=== PATIENT | female | born 1950 | race Caucasian/White ===

== ENCOUNTER → 2017-11-18 | Outpatient (CLI) | payer MEDICARE, OTHER ==
[~2017-11-18] MED LIST: ALENDRONATE SOD35 MG PO; ALLEGRA-D 12 H1 EAC1 PO; AZO CRANBERRY1 EACH PO; BOTOX COSMETI50 UNIT IM; BUTALBITAL-APA1 EAC1 PO; CALCIUM 600 +1 EAC2 PO; CALCIUM 600 WI1 EAC2 PO; CARDIZEM60 MG PO; COMPAZINE5 MG PO; DILTIAZEM ER120 M1 PO; ESTRADIOL 1 MG T1 M1 PO; FIORICET 50-321 EACH PO; FLAXSEED OIL1000 M2 PO; HYDROCODON-ACE1 EAC7 PO; IBUPROFEN 800800 M1 PO; LEVOTHYROXIN0.112 M1 PO; LISINOPRIL10 MG PO; MACROBID 100 M100 M2 PO; MELATONIN5 M1 PO; MELOXICAM7.5 MG PO; MOTILIUM PO; NEURONTIN 400400 M1 PO; NEURONTIN600 MG PO; NEUROTIN; NEXIUM40 MG PO; OXYCODONE HCL5 M1 PO; PAXIL10 MG PO; PROCHLORPERAZINE5 M2 PO; PROTONIX40 M1 PO; RIZATRIPTAN10 M1 PO; SKELAXIN 800 M800 M1 PO; SUMATRIPTAN PO; ULTRACET TABLE1 EACH PO; UNISOM50 MG PO; VITAMIN B-650 M1 PO; VITAMIN E400 UNIT PO; ZETIA10 MG PO; ZOFRAN4 MG PO; ZYRTEC-D TABLE1 EAC1 PO
--- NOTE | 2017-12-10 08:27 | PAINCON ---
[address] [address] PAIN MANAGEMENT CONSULTATION Name: THAONAE L Room: [facility] Anila#: [id number] Admission: 11/18/17 Attend Phys: Maddy Paige MD Discharge: Date of : 50 Report #: [id number] THIS REPORT FOR: //name// CC: Wing Gregg DATE OF SERVICE: 11/18/2017 CHIEF COMPLAINT: Pain in the back of the neck and some pain down in my left arm. HISTORY OF PRESENT ILLNESS: The patient is a 67-year-old female who has been referred to the Pain Clinic. The patient has a long history of chronic pain. She suffers from migraine headaches. She has undergone Botox injections. She is undergoing physical therapy. States that there is a strong history of migraine in her family. Father, mother, sisters and brother are all affected by migraines. She finds that her pain can be quite problematic. She has a regimen of medications she has been using. She has problems with her kidneys, third-degree levels of function. She has undergone physical therapy. Finds that pain in her left arm can be problematic. Notes that when she falls asleep or lays back that she can get numbness and tingling down into her arms involving the middle finger. Has been told that she has some stenosis in the cervical 3-4 area. Rates her pain as a 2/10 today. ALLERGIES: THE PATIENT HAS USED STEROID MEDICATIONS AND NOTES A REDDENING OF HER FACE. THIS IS BUFFERED BY USE OF BENADRYL. HAS PROBLEMS WITH STATINS WITH ADVERSE REACTION. CURRENT MEDICATIONS: Zetia 10 mg p.o. daily, lisinopril 10 mg daily, Zyrtec-D 5 mg/120 p.o. daily, Motilium 10 mg p.o. t.i.d., Synthroid 112 mcg daily, pantoprazole 40 mg b.i.d., calcium 600 mg p.o. b.i.d., diltiazem 60 mg daily, Botox subq every 3 months for migraine headaches, melatonin 5 mg at night, Paxil 10 mg p.o. at night, gabapentin 400 mg at bedtime and 600 mg in the morning, alendronate 35 mg once weekly p.r.n. Medications include metaxalone 800 mg t.i.d. for headache, butalbital/APAP/caffeine 50/325/40 one tablet to two tablets q. 48 hours p.r.n. headache, prochlorperazine 5 mg p.o. q.4 hours p.r.n. nausea, sumatriptan 25 mg p.r.n. migraine, Azo-Tabs p.o. for bladder spasms p.r.n., Macrobid 1 tablet b.i.d. p.r.n. UTI, rizatriptan 10 mg p.r.n. migraine. PAST MEDICAL HISTORY: Migraine headaches with strong family history of migraine headaches, hypothyroidism, hypertension, cervical spondylosis without myelopathy, dysphasia, carpal tunnel syndrome right upper limb, hypercholesterolemia, hyperlipidemia, osteopenia, osteoporosis, diverticulosis of the colon, chronic renal disease stage 3 moderate, reactive airway disease, chronic insomnia. [facility] [address] [place] [address] PAIN MANAGEMENT CONSULTATION Name: NAE THAO Room: [facility]#: [id number] Admission: 11/18/17 Attend Phys: Maddy Paige MD Discharge: Date of : 50 Report #: [id number] FAMILY HISTORY: Father with cerebrovascular accident, myocardial infarct, hypertension disorder, alcoholism. Sister with malignant neoplastic disease, migraine headaches, hypertension disorder, disorder of the lungs. Daughter with malignant neoplastic disease. Mother with heart disease, hypertensive disorder, diabetes mellitus, depression disorder, anxiety, senility. PAST SURGICAL HISTORY: Salpingo-oophorectomy 07/2013, breast mastectomy 02/2013, knee surgery, ACL repair 02/2013, shoulder surgery, hysterectomy, breast reconstruction 06/2013. 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 Denies use of tobacco. Denies use of alcoholic beverages. REVIEW OF SYSTEMS: Generally good health, chronic headaches, wears glasses, chronic sinus problems/rhinitis, shortness of breath, chronic frequent cough, lightheadedness, dizziness, numbness and tingling in the left arm, thyroid disease, anemia. LABORATORY DATA: NCV and EMG findings 11/2016 indicate evaluation of the right median sensory nerve showed prolonged distal peak latency 4.1 MS. All remaining nerves as indicated were within normal limits. Needle evaluation of the right bicep and right deltoid muscles showed few complex polyphasic potentials. All remaining muscles showed no evidence of electrical instability. IMPRESSION: The electrodiagnostic study reveals evidence of mild or early primary subacute C5/C6 radiculopathy on the right. There is also evidence of mild right carpal tunnel syndrome, medial nerve entrapment at the wrist. PAIN CLINIC ASSESSMENT: 1. History of arthritis involving the right shoulder. 2. Height 5 feet 6 inches, weight 179 pounds, BMI is 29. 3. Vital signs - blood pressure 119/72, pulse 72, respiratory rate 16, room air saturation 95%, temperature 97.7. 4. Pain intensity judged 11/15. 5. Fall risk. The patient has not fallen in the last 3 months. 6. Blood thinners. The patient is not on a blood thinner. 7. History of hypertension. The patient is being treated for hypertension. 8. Opioid greater than 6 weeks. The patient is not receiving chronic opioid therapy. 9. Risk assessment tool. 10. Functional assessment tool. 11. Recreational drug use. The patient has never used recreational drugs. 12. Tobacco. The patient does not smoke tobacco. 13. Alcohol. The patient does not use alcohol. 14. The pain impact score is 38/70 in regards to general activity, mood, [place] [address] PAIN MANAGEMENT CONSULTATION Name: NAE THAO Room: [facility]#: [id number] Admission: 11/18/17 Attend Phys: Maddy Paige MD Discharge: Date of : 50 Report #: [id number] walking ability, normal work, relationship with others, sleep, enjoyment of life. PHYSICAL EXAMINATION: GENERAL: The patient is a well-developed white female, appears her stated age. Orientation, the patient is alert and oriented x 3 with smooth language. Affect, appropriate. HEENT: Head is atraumatic. Extraocular muscles intact. Denies any significant sinus problems today. NECK: Without adenopathy. MUSCULOSKELETAL: Palpation in the occipital areas bilaterally reproduce a significant component of the patient's pain, which she is experiencing today. She sometimes has pain that radiates from the occipital area to the temporal areas and some sensation behind her eye of pain and discomfort. Palpation in the left levator scapulae causes pain and discomfort with palpation of this up into the transverse processes in her neck. She has muscle strength today judged to be 5/5 for the major muscle groups of the upper extremity. Interosseous muscles are within normal limits. Deep tendon reflexes are +1 bilaterally at the biceps, difficult to assess for the triceps and brachioradialis, and left and right lateral head rotation and left and right lateral bending cause some discomfort in the neck area. Musculoskeletal evaluation is without significant scoliosis, kyphosis or lordosis. Deep tendon reflexes are +1 at the knees bilaterally. Difficult to assess at the ankles. Major muscle groups judged to be 5/5 for the major muscle groups in the lower extremities. IMPRESSION: 1. Bilateral occipital neuralgia on evaluation today. 2. Chronic kidney disease stage 3. 3. Reactive airway disease. 4. Chronic migraines with family history of migraines. 5. Essential hypertension. 6. History of breast cancer. 7. Chronic insomnia. 8. Hyperlipidemia. 9. Gastroesophageal reflux disease. 10. Hypothyroidism. RECOMMENDATIONS: We discussed treatment options with the patient. She does have pain in the left and right occipital areas. Palpation in this area does reproduce a significant component of the pain and discomfort. We discussed the possible treatment of this pain with occipital nerve blocks. The patient at this juncture feels that her headache is problematic enough that she would like to proceed with this course of treatment. We have explained the possible complications, which could include but are not limited to infection, increased muscle soreness, headache, bleeding and worsening of pain. The [place] [address] PAIN MANAGEMENT CONSULTATION Name: THAONAE Room: [facility] Anila#: [id number] Admission: 11/18/17 Attend Phys: Maddy Paige MD Discharge: Date of : 50 Report #: [id number] PROCEDURE NOTE: The patient was placed in the prone position. Her neck was sterilely prepped with a chlorhexidine solution. This was allowed to dry. Palpation of the left occipital area was provided. This reproduced the patient's pain. A 25-gauge needle was then advanced into this area. After aspiration without blood, a total of 7 mL of 0.5% bupivacaine and 40 mg triamcinolone was injected on the left side. The contralateral right side was treated in a like fashion. This area had been sterilely prepped with a chlorhexidine solution and allowed to dry. A 25-gauge needle was then advanced into this area. It reproduced her discomfort. A total of 8 of 7 mL of 0.5% bupivacaine and 40 mg triamcinolone was injected. The patient tolerated the procedure well. There were no complications. She will follow up in the future as needed. We would like to thank you for letting us participate in her care. We hope she continues to improve. <ELECTRONICALLY SIGNED> By: Maddy Paige MD 12/10/17 0827 [id number] [id number]. Virgil Paige MD /nt
== END | disposition home or self-care (01) ==
LOC: M.PC 01:30
DX: M54.81 Occipital neuralgia (principal); I12.9 Hypertensive chronic kidney disease with stage 1 through stage 4 chronic kidney disease, or unspecified chronic kidney disease; N18.3 Chronic kidney disease, stage 3 (moderate); G43.809 Other migraine, not intractable, without status migrainosus; J45.909 Unspecified asthma, uncomplicated; F51.04 Psychophysiologic insomnia; E78.5 Hyperlipidemia, unspecified; K21.9 Gastro-esophageal reflux disease without esophagitis; E03.9 Hypothyroidism, unspecified; M81.0 Age-related osteoporosis without current pathological fracture; M85.80 Other specified disorders of bone density and structure, unspecified site; Z85.3 Personal history of malignant neoplasm of breast; Z82.49 Family history of ischemic heart disease and other diseases of the circulatory system; Z83.3 Family history of diabetes mellitus; Z80.8 Family history of malignant neoplasm of other organs or systems; Z98.890 Other specified postprocedural states; Z87.19 Personal history of other diseases of the digestive system; Z79.899 Other long term (current) drug therapy; Z88.8 Allergy status to other drugs, medicaments and biological substances

== ENCOUNTER → 2017-12-09 | Outpatient (CLI) | payer MEDICARE, OTHER ==
--- NOTE | 2017-12-17 14:39 | PAINCON ---
[address] [address] PAIN MANAGEMENT CONSULTATION Name: THAONAE L Room: [facility] High#: [id number] Admission: 12/09/17 Attend Phys: Maddy Paige MD Discharge: Date of : 50 Report #: [id number] THIS REPORT FOR: //name// CC: Wing Gregg DATE OF SERVICE: 12/09/2017 FOLLOWUP COMPLAINT: Headaches and migraine headaches over the last number of years. FOLLOWUP HISTORY: The patient is a 67-year-old female who has been seen in the pain clinic because of chronic headaches. She suffers from migraine type headaches. Finds that Botox injections have been helpful. She also has some pain and discomfort in the occipital area. At the last visit, we evaluated her. She was found to have occipital neuralgia type pain. She underwent bilateral occipital neuralgia blocks. Noticed that her pain continues to be problematic. She did note some numbness in the occipital areas on both sides for about day and a half. It appears that her migraine headaches have continued. She feels that her pain continues to be quite problematic. Rates her pain today as a 3/10. Has taken some of her usual medications of Excedrin muscle relaxants. Currently, she feels somewhat nauseated and has taken Compazine because of the headache. She also has some muscle spasms in the back of her neck. She takes Imitrex p.r.n. She takes Fioricet, but tries to avoid this medication until absolutely necessary. She also has used gabapentin or ibuprofen. She tries to avoid this medication as well. ALLERGIES: THE PATIENT HAS USED STEROID MEDICATIONS AND NOTED A REDDENING OF HER FACE. SHE DID NOTE SOME REDDENING OF HER FACE AFTER THE LAST INJECTION IN THE OCCIPITAL AREA. NO UNTOWARD COMPLICATIONS WERE NOTED THOUGH. THE PATIENT OFTEN USES BENADRYL TO HELP COMBAT THIS. SHE HAS HAD SOME PROBLEMS WITH STATINS AND EXPERIENCE SOME ADVERSE REACTIONS. MEDICATIONS: Reviewed are Zetia 10 mg p.o. daily, lisinopril 10 mg daily, Zyrtec D 5/120 p.o. daily, Motilium 10 mg p.o. t.i.d., Synthroid 112 mcg daily, pantoprazole 40 mg b.i.d., calcium 600 mg p.o. b.i.d., diltiazem 60 mg daily, Botox every 3 months for migraine headaches, which she finds helpful, Meloxicam 5 mg at night, Paxil 10 mg p.o. at night, gabapentin 400 mg at bedtime and 600 mg in the morning, alendronate 35 mg once weekly p.r.n. Medications also include metaxalone 800 mg p.o. t.i.d. for headaches, butalbital/apap/caffeine 50/325/40 one tablet to two tablets p.r.n. q. 48 hours p.r.n. headache, prochlorperazine 5 mg p.o. q. 4 hours p.r.n. nausea, sumatriptan 25 mg p.o. p.r.n. migraines, Azo-Tabs p.o. for bladder spasms, Macrobid 1 tablet b.i.d. p.r.n. for UTI, Rizatriptan 10 mg p.r.n. migraines. [facility] [address] [place] [address] [address] PAIN MANAGEMENT CONSULTATION Name: NAE THAO Room: [facility]#: [id number] Admission: 12/09/17 Attend Phys: Maddy Paige MD Discharge: Date of : 50 Report #: [id number] PAIN CLINIC ASSESSMENT: 1. GENERAL: The patient is not being treated for osteoarthritis or rheumatoid arthritis on a regular basis. 2. Height 5 feet 6 inches, weight 175 pounds, BMI 28.8. 3. VITAL SIGNS: Blood pressure 110/75, pulse 59, respiratory rate 16, room air saturation 96%, temperature 97.4. 4. Pain intensity: 3/10. 5. Fall risk. The patient has not fallen in the last 3 months. 6. The patient is not on a blood thinner. 7. Hypertension. The patient is not being treated for hypertension. 8. Opioid therapy. The patient is not receiving opioid medication on a regular basis. 9. Risk management tool. 10. Functional assessment tool. 11. Recreational drug use. The patient denies tobacco. The patient denies alcoholic use. The patient does not use alcoholic beverages on a regular basis. PHYSICAL EXAMINATION: GENERAL: The patient is well developed white female, appears her stated age. Orientation is that x3 with smooth language. Affect is appropriate. HEENT: Atraumatic. Extraocular eye muscles intact, denies any significant sinus problems today. Not had flu. NECK: Without adenopathy. MUSCULOSKELETAL: Palpation in the occipital areas do still reproduce pain and discomfort. The patient has a migraine type headache with its usual sequelae of nausea, photophobia. She has pain and discomfort in the levator scapular areas. Muscle strength is 5/5 over the major muscle groups in the upper and lower extremities. IMPRESSION: 1. Chronic migraine headaches. 2. Chronic renal disease, stage III. 3. Reactive airway disease. 4. Chronic migraines with family history of migraines. 5. Essential hypertension. 6. History of breast cancer. 7. Chronic insomnia. 8. Hyperlipidemia. 9. Gastroesophageal reflux. 10. Hypothyroidism. RECOMMENDATIONS: We discussed treatment options with the patient. At this juncture, we will try diclofenac solution. This is a newer medication use, which has been touted to be effective in patients with migraine headaches. We have given the patient a number of samples. She will take it 1 p.o. q. [address] [place] [address] PAIN MANAGEMENT CONSULTATION Name: GIGI THAOKIE Kenia Room: [facility]#: [id number] Admission: 12/09/17 Attend Phys: Maddy Paige MD Discharge: Date of : 50 Report #: [id number] for migraine headache and note its efficacy. The patient states that she did notice that the pain improved for one day after the bilateral occipital injections. At this juncture, if her pain continues and it appears that it is not significantly impacted by the occipital nerves at this juncture, she may elect to have another injection of Botox. She will follow up in the near future. We would like to thank you for letting us participate in her care. We hope she continues to improve. <ELECTRONICALLY SIGNED> By: Maddy Paige MD 12/17/17 1439 [id number]. Virgil Paige MD /ROSIE
== END ==
LOC: M.PC 01:47
DX: I12.9 Hypertensive chronic kidney disease with stage 1 through stage 4 chronic kidney disease, or unspecified chronic kidney disease (principal); N18.3 Chronic kidney disease, stage 3 (moderate); G43.809 Other migraine, not intractable, without status migrainosus; J45.909 Unspecified asthma, uncomplicated; F51.04 Psychophysiologic insomnia; E78.5 Hyperlipidemia, unspecified; K21.9 Gastro-esophageal reflux disease without esophagitis; E03.9 Hypothyroidism, unspecified; Z85.3 Personal history of malignant neoplasm of breast

== ENCOUNTER → 2018-09-25 | Outpatient (CLI) | payer MEDICARE, OTHER | LOC: M.ULTRA 14:09 | DX: N39.0 Urinary tract infection, site not specified (principal); N28.9 Disorder of kidney and ureter, unspecified ==

== ENCOUNTER 2018-12-23 10:05 | Emergency (ER) | payer MEDICARE, OTHER ==
[~2018-12-23] VITALS: Ht 167.6 cm; Wt 79.8 kg
[2018-12-23 10:41] LABS: ABSOLUTE EOSINOPHILS 0.2 thou/uL (0.0-0.7); ABSOLUTE LYMPHOCYTES 1.1 thou/uL (0.8-5.3); ABSOLUTE MONOCYTES 0.4 thou/uL (0.0-1.2); ABSOLUTE NEUTROPHILS 4.5 thou/uL (1.6-8.1); BASOPHILS 0.5 %; EOSINOPHILS 2.7 %; HEMATOCRIT 42.8 % (37.0-47.0); HEMOGLOBIN 14.4 gm/dL (12.0-15.0); LYMPHOCYTES 17.9 %; MCH 30.6 pg (26.0-34.0); MCHC 33.7 g/dL (28.0-37.0); MCV 90.6 fL (80.0-100.0); MONOCYTES 6.9 %; MPV 7.5 fl. (7.2-11.1); NUCLEATED RBCS 0 /100WBC; PLATELET COUNT* 328 thou/uL (150-400); RBC 4.73 mil/uL (4.20-5.00); WBC 6.2 thou/uL (4.0-11.0)
[2018-12-23 10:57] LABS: APTT 30.3 Seconds (25.0-31.3); PROTIME 10.6 Seconds (9.20-11.50)
[2018-12-23 11:10] LABS: ALKALINE PHOSPHATASE 112 U/L (46-116); ANION GAP 8 mmol/L (7-16); BUN 20 mg/dL (7-18); CALCIUM 9.4 mg/dL (8.5-10.1); CHLORIDE 103 mmol/L (98-107); CK-MB MASS 0.7 ng/mL (<0.5-3.6); CO2 30 mmol/L (21-32); CREATININE 1.2 mg/dL (0.6-1.3); GLUCOSE 97 mg/dL (70-99); LIPASE 100 U/L (73-393); MAGNESIUM 2.2 mg/dL (1.8-2.4); NT-PRO BRAIN NAT PEPTIDE 30 pg/mL (<300); POTASSIUM 4.4 mmol/L (3.5-5.1); SGOT 17 U/L (15-37); SGPT 20 U/L (30-65); SODIUM 141 mmol/L (136-145); TOTAL BILIRUBIN 0.4 mg/dL (<0.1-1.0); TOTAL PROTEIN 7.7 g/dL (6.4-8.2); TROPONIN-I LEVEL <0.06 ng/mL (<0.06)
[2018-12-23 11:26] VITALS: BP 110/74
--- NOTE | 2018-12-23 16:51 | EKG ---
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 : 1950 Requested By: Waldo Cavazos Order Number: [id number] MD: Wing Dyer Measurements Intervals [place] Rate: 77 P: 43 TN: 188 QRS: -22 QRSD: 97 T: 40 QT: 392 QTc: 444 Interpretive Statements Sinus rhythm Borderline left axis deviation Low voltage, precordial leads Abnormal R-wave progression, late transition Compared to ECG 02/13/2013 13:02:45 Low QRS voltage now present Electronically Signed On 12-23-2018 16:51:13 CDT by Wing Dyer [email or web address] <ELECTRONICALLY SIGNED> By: Wing Dyer MD, [facility] 12/23/18 1651 1010 1010 Wing Dyer MD, [facility] /EPI
== END 2018-12-23 11:27 | disposition home or self-care (01) ==
LOC: M.ERS 10:05
PROVIDERS: Family Medicine
DX: R53.1 Weakness (principal); E03.9 Hypothyroidism, unspecified; K21.9 Gastro-esophageal reflux disease without esophagitis; G43.909 Migraine, unspecified, not intractable, without status migrainosus; E78.00 Pure hypercholesterolemia, unspecified; Z90.710 Acquired absence of both cervix and uterus; Z85.3 Personal history of malignant neoplasm of breast; Z88.8 Allergy status to other drugs, medicaments and biological substances

== ENCOUNTER → 2018-12-31 | Outpatient (CLI) | payer OTHER | LOC: M.CT 12:43 | DX: Z13.6 Encounter for screening for cardiovascular disorders (principal) ==

== ENCOUNTER 2019-10-22 12:54 | Emergency (ER) | payer MEDICARE, OTHER ==
[~2019-10-22] VITALS: Ht 167.6 cm; Wt 84.8 kg
[2019-10-22] MEDS ORDERED: AJOVY225 MG/1.5 SUBQ (13:21)
[2019-10-22] MEDS ORDERED: IMITREX 25 MG T25 M1 PO (13:21)
[2019-10-22 13:40] VITALS: BP 138/77
[2019-10-22 14:56] LABS: CREATININE 1.3 mg/dL (0.6-1.3)
[2019-10-22 15:00] LABS: TOTAL BILIRUBIN 0.3 mg/dL (<0.1-1.0); TOTAL PROTEIN 7.9 g/dL (6.4-8.2)
== END 2019-10-22 13:44 | disposition still patient (30) ==
LOC: M.ERS 12:54 → M.GI 12:54 → M.ERS 13:44
PROVIDERS: Internal Medicine Gastroenterology
DX: T18.128A Food in esophagus causing other injury, initial encounter (principal); K21.9 Gastro-esophageal reflux disease without esophagitis; G43.909 Migraine, unspecified, not intractable, without status migrainosus; E03.9 Hypothyroidism, unspecified; E78.00 Pure hypercholesterolemia, unspecified; Z90.710 Acquired absence of both cervix and uterus; Z85.3 Personal history of malignant neoplasm of breast; Z88.8 Allergy status to other drugs, medicaments and biological substances; Y92.89 Other specified places as the place of occurrence of the external cause